=== PATIENT | female | born 1970 | race Two or more races ===

== ENCOUNTER 2018-08-06 13:59 | Emergency (ER) | payer OTHER ==
[2018-08-06 14:55] VITALS: BP 112/58
[2018-08-06] MEDS ORDERED: Tetan/Diph/Pertus SYR(Tdap)* 0.5 ML SYR(BOOSTRIX) use SYR IM ONE (15:31)
--- NOTE | 2018-08-06 15:43 | UC ---
Lower Extremity/Ankle HPI - HPI Summary HPI Summary: 47 y/o female with no PMH, no medications presents after stepping on piece of glass from trash at 1PM, unknow where glass came from, unknown last tetanus injection. + bleeding, has resolved. concerned about fungal infection as glass looked dirty. ambulating well, pain mild/ well controlled. - History of Current Complaint Chief Complaint: UCSkin Stated Complaint: R FOOT INJURY Time Seen by Provider: 08/06/18 15:24 Hx Obtained From: Patient Hx Last Menstrual Period: 08/02/18 ?: No Onset/Duration: Sudden Onset, Lasting Hours Severity Initially: Moderate Severity Currently: Mild Pain Intensity: 1 Pain Scale Used: 0-10 Numeric - Allergies/Home Medications Allergies/Adverse Reactions: Allergies Allergy/AdvReac Type Severity Reaction Status Date / Time No Known Allergies Allergy Verified 08/06/18 14:55 Home Medications: Home Medications Fexofenadine (NF) [Shelley 180 (NF)] 08/06/18 [History] PMH/Surg Hx/FS Hx/Imm Hx Previously Healthy: Yes - Surgical History Surgical History: None - Social History Alcohol Use: None Substance Use Type: None Smoking Status (MU): Never Smoked Tobacco Review of Systems All Other Systems Reviewed And Are Negative: Yes Skin: Positive: Other - puncture wound , bleeding Musculoskeletal: Positive: Myalgia Is Patient Immunocompromised?: No Physical Exam Triage Information Reviewed: Yes Appearance: Well-Appearing, No Pain Distress, Well-Nourished Vital Signs: Initial Vital Signs Temp 97.9 F 08/06/18 14:48 Pulse 74 08/06/18 14:48 Resp 18 08/06/18 14:48 BP 112/58 08/06/18 14:48 Pulse Ox 98 08/06/18 14:48 Eyes: Positive: Conjunctiva Clear Musculoskeletal: Positive: Strength Intact, ROM Intact - ankle, toes., No Edema - R foot Neurological Exam: Normal Neurological: Positive: Alert, Other: - PT, DP 2+ R foot Skin: Positive: Other - small puncture wound noted at mid ball of foot, no bleeding noted, minimal tenderness with palpation. no FB appreciated. Lower Extremity Course/Dx - Course Course Of Treatment: radiograph- neg for FB. TDAP given. abx prophyl. - Differential Dx/Diagnosis Differential Diagnosis/HQI/PQRI: Foreign Body, Osteomyelitis, Tendonitis, Tenosynovitis Provider Diagnosis: Puncture wound of foot Discharge - Sign-Out/Discharge Documenting (check all that apply): Patient Departure All imaging exams completed and their final reports reviewed: Yes - Discharge Plan Condition: Good Disposition: HOME Prescriptions: Sulfamethox/Trimethoprim DS* [Bactrim DS 800/160 TAB*] 1 tab PO BID #10 tab Patient Education Materials: Puncture Wound (ED) Referrals: Rashard Sandhu MD [Primary Care Provider] - Additional Instructions: - Motrin/ Tylenol as needed for pain - Warm water soaks three times daily for 3 days - Antibiotics as prescribed - continue to monitor for infection - Billing Disposition and Condition Condition: GOOD Disposition: Home
== END 2018-08-06 16:21 | disposition home or self-care (01) ==
LOC: UCEAST 13:59
DX: S91.331A Puncture wound without foreign body, right foot, initial encounter (principal); W25.XXXA Contact with sharp glass, initial encounter; Y92.9 Unspecified place or not applicable
CPT/HCPCS: 90471; 90715; 99202; G0463

== ENCOUNTER 2018-12-09 17:26 | Emergency (ER) | payer OTHER ==
[2018-12-09 17:38] VITALS: BP 139/94
--- NOTE | 2018-12-09 18:00 | UC ---
Throat Pain/Nasal Santino HPI - HPI Summary HPI Summary: 48-year-old woman comes in with chief complaint of upper respiratory tract infection symptoms for almost 7 days. I will runny nose sore throat. Sore throat was quite bad and her a lot with swallowing. SORE THROATS LESS BUT NOW SHE IS LARYNGITIS. Patient reports that last time she had this she had laryngitis for 2 months. [id number] medicines help some with the symptoms but not very much. - History of Current Complaint Chief Complaint: UCGeneralIllness Stated Complaint: SORE THROAT Time Seen by Provider: 12/09/18 17:32 Hx Last Menstrual Period: 11/17/2018 Pain Intensity: 1 - Allergies/Home Medications Allergies/Adverse Reactions: Allergies Allergy/AdvReac Type Severity Reaction Status Date / Time No Known Allergies Allergy Verified 08/06/18 14:55 Home Medications: Home Medications Dextromethorphan Polistirex [Delsym] 12/09/18 [History] guaiFENesin LIQ* [Robitussin*] 12/09/18 [History] PMH/Surg Hx/FS Hx/Imm Hx Previously Healthy: Yes - Surgical History Surgical History: None - Family History Known Family History: Positive: Non-Contributory - Social History Alcohol Use: None Substance Use Type: None Smoking Status (MU): Never Smoked Tobacco Review of Systems All Other Systems Reviewed And Are Negative: Yes Constitutional: Positive: Negative Skin: Positive: Negative Eyes: Positive: Negative ENT: Positive: Sore Throat, Nasal Discharge Respiratory: Positive: Negative Cardiovascular: Positive: Negative Gastrointestinal: Positive: Negative Motor: Positive: Negative Neurovascular: Positive: Negative Musculoskeletal: Positive: Negative Neurological: Positive: Negative Psychological: Positive: Negative Is Patient Immunocompromised?: No Physical Exam Triage Information Reviewed: Yes Appearance: No Pain Distress, Well-Nourished, Ill-Appearing - MILD Vital Signs: Initial Vital Signs Temp 97.8 F 12/09/18 17:31 Pulse 88 12/09/18 17:31 Resp 16 12/09/18 17:31 BP 139/94 12/09/18 17:31 Pulse Ox 90 12/09/18 17:31 Vital Signs Reviewed: Yes Eye Exam: Normal Eyes: Positive: Conjunctiva Clear ENT: Positive: Pharyngeal erythema, Nasal congestion, Nasal drainage, TMs normal Neck exam: Normal Neck: Positive: Supple, Nontender Respiratory: Positive: Lungs clear, Normal breath sounds, No respiratory distress Cardiovascular: Positive: RRR Musculoskeletal Exam: Normal Musculoskeletal: Positive: Strength Intact, ROM Intact, No Edema, Other: - NO CALF TENDERNESS Neurological Exam: Normal Neurological: Positive: Alert, Muscle Tone Normal Psychological Exam: Normal Psychological: Positive: Normal Response To Family, Age Appropriate Behavior Skin Exam: Normal Throat Pain/Nasal Course/Dx - Course Course Of Treatment: DISCUSSED VIRAL VERSES BACTERIAL INFECTION AND THE ROLE OF ANTIBIOTICS. THE PATIENT WISHES TO BE ON ANTIBIOTICS AT THIS TIME. - Differential Dx/Diagnosis Provider Diagnosis: Laryngitis Discharge - Sign-Out/Discharge Documenting (check all that apply): Patient Departure All imaging exams completed and their final reports reviewed: No Studies - Discharge Plan Condition: Stable Disposition: HOME Prescriptions: Amoxicillin PO (*) [Amoxicillin 875 MG (*)] 875 mg PO BID #20 tab Patient Education Materials: Laryngitis (ED) Referrals: Rashard Sandhu MD [Primary Care Provider] - Additional Instructions: FOLLOW UP WITH YOUR DOCTOR IF NOT COMPLETELY IMPROVED. TRY OVER THE COUNTER COUGH MEDICATION WITH GUAIFENESIN TO HELP THE COUGH. GET REEVALUATED SOONER FOR ANY WORSENING OF YOUR CONDITION OR ANY QUESTIONS OR CONCERNS. - Billing Disposition and Condition Condition: STABLE Disposition: Home
== END 2018-12-09 18:15 | disposition home or self-care (01) ==
LOC: UCEAST 17:26
DX: J04.0 Acute laryngitis (principal)
CPT/HCPCS: 99212; G0463

== ENCOUNTER 2019-05-31 14:31 | Emergency (ER) | payer OTHER ==
[2019-05-31 14:49] VITALS: BP 131/99
--- NOTE | 2019-05-31 15:10 | UC ---
Eye Complaint HPI - HPI Summary HPI Summary: Pt presents to for eval of right eye. Pt states yesterday she noticed irritation in her right eye. Pt states [place], [place] airport, and washed with tap water. No foreign body concern. Pt states this am increased reddness and sticky. Pt with yellow/green drainage no fever, chills no fb sensation. Pt wears glasses no contact. Pt also reports is getting head cold. no fever chills no eye pain but states feels inflammed medications reviewed this visit - History of Current Complaint Chief Complaint: UCEye Stated Complaint: EYE COMPLAINT Time Seen by Provider: 05/31/19 14:50 Hx Obtained From: Patient Hx Last Menstrual Period: 4 weeks Onset/Duration: Gradual Onset Timing: Constant Severity Initially: Mild Severity Currently: Mild Pain Intensity: 1 Pain Scale Used: 0-10 Numeric - Allergies/Home Medications Allergies/Adverse Reactions: Allergies Allergy/AdvReac Type Severity Reaction Status Date / Time No Known Allergies Allergy Verified 05/31/19 14:49 Home Medications: Home Medications Cetirizine* [ZyrTEC 10 MG TAB*] 1 tab PO DAILY PRN 05/31/19 [History Confirmed 05/31/19] PMH/Surg Hx/FS Hx/Imm Hx Previously Healthy: Yes - Surgical History Surgical History: Yes Surgery Procedure, Year, and Place: oral surgery. DeQuever vein to hands. uterine polyps. 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 Negative: Blurred Vision, Diplopia, Photophobia ENT: Positive: Negative Respiratory: Positive: Negative Cardiovascular: Positive: Negative Gastrointestinal: Positive: Negative Genitourinary: Positive: Negative Physical Exam - Summary Physical Exam Summary: Vital Signs Reviewed: Yes A+Ox3, no distress Eyes: right eye: + injected, thick yellow discharge, ANDRES, EOM intact, no photophobia, crisp fundoscopic margin visual acuity reviewe ENT: Hearing grossly normal TM x 2 clear, turbinates mild inflammed, boggy, mmoist, uvula midline, no exudate, no erythema Neck: Positive: Supple Respiratory: Positive: No respiratory distress, No accessory muscle use + CTA throughout no w/r Cardiovascular: RRR nl s1, s2 no m/r CBT <2 sec abd soft + BS nt/nd no guarding, no distension Musculoskeletal Exam: MARTIN x 4 without difficulty Strength Intact, ROM Intact Neurological: Positive: Alert, + sensation throughout Psychological: Positive: Normal Response To Family Skin: Positive: no rash, no ecchymosis Triage Information Reviewed: Yes Vital Signs: Initial Vital Signs Temp 99.3 F 05/31/19 14:44 Pulse 103 05/31/19 14:44 Resp 17 05/31/19 14:44 BP 131/99 05/31/19 14:44 Pulse Ox 99 05/31/19 14:44 Eye Complaint Course/Dx - Course Course Of Treatment: Pt presents with 24 horus progressive right eye injection, itching and discharge pt states sticky this am mild burnig, no vision changes vss visual acuity reviewed exam cw conjunctivitis will Rx abx drips secretion precaution return precautions recommend decongestant for head congestion pt comfortable and in agreementt with plan - Differential Dx/Diagnosis Differential Diagnosis/HQI/PQRI: Conjunctivitis Provider Diagnosis: Acute conjunctivitis of right eye Discharge ED - Sign-Out/Discharge Documenting (check all that apply): Patient Departure All imaging exams completed and their final reports reviewed: No Studies - Discharge Plan Condition: Stable Disposition: HOME Prescriptions: Polymyx/Trimethoprim OPTH* [Polytrim OPHTH*] 2 drop BOTH EYES Q8HR #1 btl Patient Education Materials: Conjunctivitis (ED) Referrals: Noe Carrillo MD [Medical Doctor] - Rashard Sandhu MD [Primary Care Provider] - Additional Instructions: - apply eye drops to affected every 3 times a day for 5 days -okay to alternate ibuprofen (Advil, Motrin) 600mg and tylenol every 3 hours for pain. Take with food - these infections are very contagious - thoroughly wash hands before and after applying eye drops. - wash her bedding, pillows frequently - If eyelids become sticky - use a warm, wet cloth to soften and clean away secretions -if you have ongoing symptomes or any other concerns, contact the plastic eye technician to schedule a follow-up or your primary care provider - Billing Disposition and Condition Condition: STABLE Disposition: Home
== END 2019-05-31 15:32 | disposition home or self-care (01) ==
LOC: UCEAST 14:31
DX: H10.9 Unspecified conjunctivitis (principal)
CPT/HCPCS: 99212; G0463